=== PATIENT | female | born 1990 | race African-American/Black ===

== ENCOUNTER 2016-08-05 08:17 | Emergency (ER) | payer SELFPAY ==
[~2016-08-05] VITALS: Ht 160 cm; Wt 90.6 kg
[~2016-08-05 08:17] MED LIST: Feosol PO; Motrin PO; NATALCARE RX1 TABLET PO; NO MEDS; PEN-VEE K,VEET500 MG PO; PERCOCET 5/31 TABLET PO; PRENATAL VITAM1 EAC3 PO; PRENATAL1 EACH PO; Percocet 5/325,Endoc PO
[2016-08-05] MEDS ORDERED: VITAMIN D5000 UNI1 PO (08:53)
[2016-08-05] MEDS ORDERED: FEOSOL325 MG PO (08:53)
[2016-08-05] MEDS ORDERED: MOTRIN800 MG PO (08:53)
[2016-08-05 08:56] LABS: HEMATOCRIT 32.7 % (36.0-46.0); MCH 32.8 PG (29.0-34.0); MCHC 35.5 G/DL (30.0-36.0); MCV 92.4 FL (83-99); PLATELET COUNT 238 K/uL (156-360); RBC DIS.WIDTH-CV 11.8 % (11.8-14.6); RBC DIS.WIDTH-SD 38.4 % (39-53); RED BLOOD COUNT 3.54 M/uL (3.80-5.20); WHITE BLOOD COUNT 7.9 K/uL (4.1-10.2)
[2016-08-05 09:09] LABS: ADD MIUA? YES; BILIRUBIN NEGATIVE; BLOOD LARGE; COLOR YELLOW ((YELLOW)); GLUCOSE (STRIP) NEGATIVE; KETONES NEGATIVE; LEUKOCYTES NEGATIVE; NITRITE NEGATIVE; PH, URINE 5.5 (5-8); PROTEIN (STRIP) NEGATIVE; SPECIFIC GRAVITY 1.027 (1.000-1.030); UROBILINOGEN 0.2 MG/DL (0.2-1.0)
[2016-08-05 09:27] LABS: ANION GAP 9 MEQ/L (2-14); CHLORIDE 106 MEQ/L (99-109); POTASSIUM 3.7 MEQ/L (3.7-5.4); SAMPLE HEMOLYSIS CHECK 0; SAMPLE ICTERIC CHECK 0; SAMPLE LIPEMIA CHECK 0; SODIUM 138 MEQ/L (136-147); TOTAL BILIRUBIN 0.5 MG/DL (0.0-1.0)
[2016-08-05 09:27] LABS: BACTERIA NONE SEEN; CASTS NONE SEEN /LPF; CRYSTALS NONE SEEN; EPITHELIAL CELLS RARE; MUCUS NONE SEEN; PATHOLOGICAL CAST NONE SEEN; SMALL ROUND CELL NONE SEEN; UCUL ADDED? NO; WHITE BLOOD CELLS 0-5 /HPF (0-5); YEAST-LIKE CELL NONE SEEN
[2016-08-05 09:32] LABS: ALKALINE PHOSPHATASE 57 IU/L (3-129); GFR ESTIMATE (CALCULATED) > 59 mL/min/; GLUCOSE 112 mg/dL (70-99); UREA NITROGEN (BUN) 12 mg/dL (9-23)
[2016-08-05 09:36] LABS: QUANTITATIVE HCG < 4.0 MIU/ML
[2016-08-05 10:31] LABS: LIPASE 10 U/L (1.0-51.0)
[2016-08-05] MEDS ORDERED: ZOFRAN ODT4 MG PO (11:57)
[2016-08-05] MEDS ORDERED: IMODIUM MS REL1 EACH PO (11:57)
[2016-08-05] MEDS ORDERED: BENTYL20 MG PO (11:57)
[2016-08-05 11:58] VITALS: BP 110/63
== END 2016-08-05 12:19 | disposition home or self-care (01) ==
LOC: EME 08:17
DX: R11.10 Vomiting, unspecified (principal); R19.7 Diarrhea, unspecified; R10.9 Unspecified abdominal pain
CPT/HCPCS: 80053; 81003; 83690; 84702; 85027; 99281; 99284; J1885; J2405; J7030